=== PATIENT | male | born 2005 | race Caucasian/White ===

== ENCOUNTER 2023-10-01 17:28 | Emergency (ER) | payer SELFPAY ==
[2023-10-01 17:33] VITALS: BP 147/81; PULSE 81; TEMP 37.2; O2SAT 99; BMI 21.9
--- NOTE | 2023-10-01 17:40 | ECG_ITS ---
[facility] Test Date: 2023-10-01 Pat Name: VENECIA FERRERA Department: Room: - Gender: Male Education Coordinator: : [id number] Requested By: [id number] Order Number: [id number] Reading MD: VIVIEN TREVINO Measurements Intervals [place] Rate: 90 P: 74 GA: 136 QRS: 86 QRSD: 100 T: 56 QT: 350 QTc: 398 Interpretive Statements 1100 Sinus rhythm 1102 Sinus arrhythmia 2440 Incomplete right bundle branch block 9130 borderline ECG No previous ECG available for comparison Electronically Signed On 10-01-2023 22:03:23 EDT by VIVIEN TREVINO
--- NOTE | 2023-10-01 17:45 | ED.GENADUL1 ---
HPI HPI - General Adult General Chief complaint: Dizziness Stated complaint: DEHYDRATION Time Seen by Provider: 10/01/23 17:31 Source: patient Mode of arrival: walk-in Limitations: no limitations History of Present Illness HPI narrative: Patient is a 18-year-old male who presents to the emergency department for possible dehydration. He was referred from urgent care. He works at a local factory and states that he felt very hot and dizzy at work although he had no sensation of spinning, no headaches or visual changes. No loss of consciousness or syncope. He states when he got home into air conditioning he felt slightly better but feeling lightheaded made him feel very panicky and anxious. He does not have a primary care provider. He has a history of Gilbert's syndrome but does not take any medications daily. He is a regular smoker. No sick contacts that he is aware of. He denies any upper respiratory symptoms, recent illness. Related Data Home Medications ?Medication ?Instructions ?Recorded ?Confirmed No Known Home Medications 10/01/23 10/01/23 Allergies Allergy/AdvReac Type Severity Reaction Status Date / Time No Known Drug Allergies Allergy Verified 10/01/23 17:33 Opioid HPI Opioid Management Most Recent Opioid Data: No Data to Display Review of Systems ROS Constitutional Denies: fever or chills Eyes Denies: change in vision Ears, nose, mouth, and throat Denies: nasal congestion Cardiovascular Denies: chest pain Respiratory Denies: shortness of breath Gastrointestinal Denies: abdominal pain, nausea or vomiting Integumentary/Breast Denies: rash Neurological Reports: dizziness; Denies: headache, numbness in extremities or weakness in extremities Hematologic/Lymphatic Denies: easy bruising or easy bleeding Exam Narrative Exam Narrative: Gen.: Awake, alert, in no distress Head: Normocephalic, atraumatic ENT: Moist mucous membranes Respiratory: No respiratory distress, lungs clear bilaterally Cardio: Regular rate and rhythm Gastrointestinal: Abdomen is soft, nondistended and nontender to palpation Extremities: Moves extremities equally Psych: Normal mood and affect Neuro: No focal neuro deficit Skin: Warm, dry, intact Constitutional Vital Signs, click to edit/add: Last Vital Signs Temp 99 F 10/01/23 17:33 Pulse 90 10/01/23 18:03 Resp 15 10/01/23 18:03 BP 147/81 H 10/01/23 17:33 Pulse Ox 99 10/01/23 17:33 O2 Del Method Room Air 10/01/23 17:33 Course Vital Signs Vital signs: Vital Signs Temperature 99 F 10/01/23 17:33 Pulse Rate 81 10/01/23 17:33 Respiratory Rate 18 10/01/23 17:33 Blood Pressure 147/81 H 10/01/23 17:33 Pulse Oximetry 99 10/01/23 17:33 Oxygen Delivery Method Room Air 10/01/23 17:33 Temperature 99 F 10/01/23 17:33 Pulse Rate 90 10/01/23 18:03 Respiratory Rate 15 10/01/23 18:03 Blood Pressure 147/81 H 10/01/23 17:33 Pulse Oximetry 99 10/01/23 17:33 Oxygen Delivery Method Room Air 10/01/23 17:33 Medical Decision Making MDM Narrative Medical decision making narrative: Patient treated with IV fluids, laboratory studies reviewed and noted within normal limits. He was given education and reassurance. Discharged home to increase fluids and return to the ER if symptoms change or worsen SUPERVISED APC VISIT, PHYSICIAN ATTESTATION: Based on the medical record the care appears appropriate. ? Medical Records Medical records reviewed: Yes I reviewed the patient's medical records Lab Data Lab results reviewed: Yes I reviewed the patient's lab results Labs: Lab Results 10/01/23 Range/Units 17:55 WBC 4.7 (4.0-11.0) 10^3/uL RBC 5.23 (4.70-6.10) 10^6/uL Hgb 15.0 (14.0-18.0) g/dL Hct 44.2 (42.0-54.0) % MCV 84.5 (80.0-94.0) fL MCH 28.7 (25.9-34.0) pg MCHC 33.9 (29.9-35.2) g/dL RDW 12.2 (11.0-15.0) % Plt Count 224 (150-450) 10^3/uL MPV 10.7 (9.5-13.5) fL Neut % (Auto) 50.0 (43.0-75.0) % Lymph % (Auto) 35.4 (20.5-60.0) % Letcher % (Auto) 10.8 (1.7-12.0) % Eos % (Auto) 2.8 (0.9-7.0) % Baso % (Auto) 0.6 (0.2-2.0) % Neut # (Auto) 2.4 (1.4-6.5) 10^3/uL Lymph # (Auto) 1.7 (1.2-3.8) 10^3/uL Letcher # (Auto) 0.5 (0.3-0.8) 10^3/uL Eos # (Auto) 0.1 (0.0-0.7) 10^3/uL Baso # (Auto) 0.0 (0.0-0.1) 10^3/uL Abs Immat Gran (auto) 0.02 (0.00-0.03) 10^3/uL Imm/Tot Granulo (auto) 0.4 (0.0-0.5) % Sodium 140 (136-145) mmol/L Potassium 4.0 (3.5-5.1) mmol/L Chloride 102 (98-107) mmol/L Carbon Dioxide 30.4 (21.0-32.0) mmol/L Anion Gap 11.6 BUN 8.0 (7.0-18.0) mg/dL Creatinine 1.03 (0.70-1.30) mg/dL Est GFR ( Amer) >60 (>=60) Est GFR (Non-Af Amer) >60 (>=60) BUN/Creatinine Ratio 7.8 Glucose 112 H (74-106) mg/dL Calcium 9.8 (8.5-10.1) mg/dL Total Bilirubin 2.0 H (0.2-1.0) mg/dL AST 23 (15-37) U/L ALT 28 (16-63) U/L Alkaline Phosphatase 59 (46-116) U/L Total Creatine Kinase 158 (39-308) U/L Total Protein 7.6 (6.4-8.2) g/dL Albumin 4.6 (3.4-5.0) g/dL Globulin 3.0 g/dL Albumin/Globulin Ratio 1.5 ECG Data Attestation: I personally reviewed and interpreted this ECG as follows: (Normal sinus rhythm at a rate of 90, sinus arrhythmia with no acute ST elevation or ectopy. EKG reviewed by attending physician) Discharge Plan Discharge Stand Alone Forms: Portal Instructions Chief Complaint: Dizziness Clinical Impression: Lightheadedness Patient Disposition: Home, Self-Care Time of Disposition Decision: 19:10 Condition: Good Prescriptions / Home Meds: No Action No Known Home Medications Print Language: [place] Instructions: Lightheadedness (ED) Referrals: Physician,Non-Staff, MD [Primary Care Provider] - 1 week
[2023-10-01] MEDS: 0.9 % SODIUM CHLORIDE 1,000 ML 999 ML IV (17:59)
[2023-10-01 18:03] VITALS: PULSE 90
[2023-10-01 18:05] VITALS: PULSE 71
[2023-10-01 18:07] LABS: Basophils Percent Auto 0.6 % (0.2-2.0); Eosinophils Absolute Auto 0.1 10^3/uL (0.0-0.7); Eosinophils Percent Auto 2.8 % (0.9-7.0); Hematocrit 44.2 % (42.0-54.0); Immature Granulocytes Abs Auto 0.02 10^3/uL (0.00-0.03); Immature Granulocytes Pct Auto 0.4 % (0.0-0.5); Lymphocytes Absolute Auto 1.7 10^3/uL (1.2-3.8); Lymphocytes Percent Auto 35.4 % (20.5-60.0); Mean Corpuscular HGB Conc 33.9 g/dL (29.9-35.2); Mean Corpuscular Hemoglobin 28.7 pg (25.9-34.0); Mean Corpuscular Volume 84.5 fL (80.0-94.0); Mean Platelet Volume 10.7 fL (9.5-13.5); Monocytes Absolute Auto 0.5 10^3/uL (0.3-0.8); Monocytes Percent Auto 10.8 % (1.7-12.0); Neutrophils Absolute Auto 2.4 10^3/uL (1.4-6.5); Platelet Count 224 10^3/uL (150-450); Red Blood Count 5.23 10^6/uL (4.70-6.10); Red Cell Distribution Width 12.2 % (11.0-15.0); White Blood Count 4.7 10^3/uL (4.0-11.0)
[2023-10-01 18:17] LABS: Alanine Aminotransferase 28 U/L (16-63); Albumin Globulin Ratio 1.5; Albumin Level 4.6 g/dL (3.4-5.0); Alkaline Phosphatase 59 U/L (46-116); Anion Gap 11.6; Aspartate Amino Transferase 23 U/L (15-37); BUN Creatinine Ratio 7.8; Calcium 9.8 mg/dL (8.5-10.1); Carbon Dioxide 30.4 mmol/L (21.0-32.0); Chloride 102 mmol/L (98-107); Estimated GFR (African America >60 (>=60); Estimated GFR (Non-African Ame >60 (>=60); Glucose 112 mg/dL (74-106); Sodium 140 mmol/L (136-145); Total Protein 7.6 g/dL (6.4-8.2)
[2023-10-01 18:20] LABS: Creatine Kinase 158 U/L (39-308)
[2023-10-01 19:28] VITALS: BP 135/80; PULSE 83; TEMP 36.9; O2SAT 100
== END 2023-10-01 19:30 | disposition home or self-care (01) ==
PROVIDERS: Physician Assistant; Emergency Provider Student in an Organized Health Care Education/Training Program
DX: R42 Dizziness and giddiness (principal); E80.4 Gilbert syndrome; F17.210 Nicotine dependence, cigarettes, uncomplicated
CPT/HCPCS: 36415; 80053; 82550; 85025; 93005; 96360; 99284